=== PATIENT | male | born 1965 | race Caucasian/White ===

== ENCOUNTER 2025-10-14 07:05 | Emergency (ER) | payer BC, SELFPAY ==
[2025-10-14 07:11] VITALS: BP 179/109
[2025-10-14 07:22] VITALS: BMI 38.5
[2025-10-14 07:33] LABS: Urine Character Clear (Clear)
[2025-10-14 07:53] LABS: Hematocrit 45.8 % (39.0-52.0); Hemoglobin 16.6 g/dL (13.0-18.0); Mean Corp Hgb Conc. 36.2 g/dL (33.0-37.0); Mean Corpuscular Volume 84.0 fL (80.0-94.0); Nucleated Red Blood Cells % 0 % (-); Platelet Count 275 10^3/uL (130-400); Red Cell Dist. Width 12.2 % (11.5-14.5)
[2025-10-14 07:58] LABS: Urine Red Blood Cell 0-2 /HPF (0-2)
[2025-10-14 08:05] VITALS: BP 136/94
[2025-10-14] MEDS: NSS 1000 IV (08:06)
[2025-10-14 08:07] LABS: ALT (SGPT) 23 U/L (0-50); AST (SGOT) 31 U/L (17-59); Albumin 4.3 g/dl (3.5-5.0); Alkaline Phosphatase 84 U/L (38-126); Blood Urea Nitrogen 19 mg/dl (9-20); Calcium 8.9 mg/dl (8.4-10.2); Carbon Dioxide 18 mmol/L (22-30); Chloride 100 mmol/L (98-107); Estimated Creatinine Clearance 91 ml/min; Glucose 137 mg/dl (70-99); Magnesium 2.1 mg/dl (1.6-2.3); Potassium 4.4 mmol/L (3.5-5.1); Sodium 130 mmol/L (135-145); Total Protein 7.5 g/dl (6.3-8.2); eGFR > 60.00
--- NOTE | 2025-10-14 08:49 | ED.GENMED ---
History of Present Illness
General
Chief Complaint: Generalized Pain
Source: patient
Exam Limitations: none
Time Seen by Provider: 10/14/25 07:18
Nursing documentation reviewed up to this point in time: agreed with
History of Present Illness
History of Present Illness:
60-year-old male presenting to the emergency department today with concerns of generalized bodyaches intermittent muscle cramping over the past day or so. Denies any specific symptoms no chest pain shortness breath nausea vomiting numbness weakness
no increase in physical activity.
Review of Systems
Review of Systems
Allergies reviewed?: Yes
All Other Systems: ROS reviewed and negative except as documented in HPI and ROS
Phy Exam
Physical Exam
Physical Exam:
GENERAL: Alert , in no apparent distress
EYE: pupils equal and reactive
NECK: Supple, no significant adenopathy.
ENT: o/p clr, mmm.
CARDIAC: Regular rate and rhythm .
LUNGS: Clear breath sounds bilaterally, no acute respiratory distress, no wheezes/rales/rhonchi
ABDOMEN: Soft, without focal tenderness, no r/g, no cvat
NEUROLOGICAL: Alert and oriented, no focal neuro deficits
SKIN: Warm and dry, skin intact.
MUSCULOSKELETAL: No edema, well perfused.
PSYCH: Normal and appropriate interaction.
Course
Orders/Labs/Results
Orders:
Orders
10/14/25 07:26
Urinalysis Reflex To Culture Urgent
Date Specimen was Collected: 10/14/25
Time Specimen was Collected: 07:23
Urine Microscopic Reflex Cult Urgent
Urine Culture Urgent
ZUNILDA Source: U
Specimen Description:
Date Specimen was Collected: 10/14/25
Time Specimen was Collected: 07:23
10/14/25 07:39
EKG [Electrocardiogram (*1)] Urgent
Reason for Study: Fatigue / Weakness
10/14/25 07:40
EKG- Treatment ONCE
0.9% Sodium Chloride 1000 ml [Nss] 1,000 ml IV BOLUS
10/14/25 07:43
CBC/With Diff [Complete Blood Count/With Diff] Urgent
CMP [Comprehensive Metabolic Panel] Urgent
Magnesium Urgent
TSH Reflex To Free T4 Urgent
10/14/25 09:23
CT Abd/Pel (IV only)-DH only Urgent
Comment:
Reason For Exam: abd pain
10/14/25 12:20
Cefdinir [Omnicef] 300 mg PO NOW STA
Abnormal Lab Results
10/14/25 10/14/25
07:26 07:43
Absolute Lymphs (auto) 0.9 L 10^3/uL
(1.2-3.4)
Absolute Monos (auto) 0.7 H 10^3/uL
(0.1-0.6)
Neutrophils % 79.4 H %
(42.2-75.2)
Lymphocytes % 11.1 L %
(20.5-51.1)
Sodium 130 L mmol/L
(135-145)
Carbon Dioxide 18 L mmol/L
(22-30)
Glucose 137 H mg/dl
(70-99)
Urine Ketones 3+ A
(Negative)
Ur Occult Blood Reflex 3+ A
(Negative)
Leukocyte Esterase Rfl 1+ A
(Negative)
Urine Bacteria (Reflex) Moderate A
(Negative)
Urine Albumin (Reflex) 2+ A
(Neg - Trace)
10/14/25 07:43
10/14/25 07:43
Vital Signs
Initial and Last Documented VS:
Initial Vital Signs
Temp Pulse Resp Pulse Ox
98.2 F 113 20 99
10/14/25 07:07 10/14/25 07:07 10/14/25 07:07 10/14/25 07:07
Last Documented Vital Signs
Temp Pulse Resp BP Pulse Ox
98.2 F 79 16 142/85 98
10/14/25 07:07 10/14/25 10:56 10/14/25 10:56 10/14/25 11:34 10/14/25 11:35
MDM/Problems Addressed
MDM/Problems Addressed:
60-year-old male presenting to the emergency department today with concerns of intermittent muscle cramping diffusely. No specific inciting event or physical activity. Labs here showing slightly low sodium level otherwise no specific emergent
findings. Patient complained of ongoing lower abdominal pain concern the CT scan was obtained that showed cystitis however inconsistent with patient's urinalysis. Does have leukocyte esterase potential early UTI the start on antibiotic otherwise
stable for discharge. Return precautions given.
*Pulse Oximetry
SaO2: 99
Oxygen Mode of Delivery: Room air
Patient hypoxic: no (98)
*Critical Care Note
Total Time (30-74mins, 75-104mins- exclusive of procedures): Not Applicable
ED Attending Note
-
Portions of this chart may have been created with voice recognition software.� Occasional wrong word or��sound alike� substitutions may have occurred due to the inherent limitations of voice recognition software.
Discharge Plan
Departure
Patient Disposition: Home (Routine Discharge)
Date of Disposition: 10/14/25
Time of Disposition: 12:22
Patient with high blood pressure during this ER visit?: No
Condition: Good
Covid-19: Not Applicable
Discharge Problem:
Cystitis, Hyponatremia
Instructions: Urinary tract infection (DC)
Prescriptions:
New
cefpodoxime 200 mg tablet
200 mg PO BID 7 Days Qty: 14 0RF
Referrals:
UNKNOWN - PT DOES,NOT KNOW [Family Provider]
[facility] [Provider Group] - Follow up in 5-7 days
Activity Restrictions/Additional Instructions:
You came to the emergency department today with concerns of symptoms. Here you are found to have potential inflammation of your bladder. Please take the prescribed antibiotic twice daily and follow-up closely with your primary care doctor. Return
for any worsening, new or concerning symptoms.
Interventions
Interventions:
*Risk Screen - Suicide Last Done: 10/14/25 07:07
*General Assessment Last Done: 10/14/25 07:17
*Neglect/Abuse Screening Last Done: 10/14/25 07:26
*ED COVID-19 Vaccine History Last Done: 10/14/25 07:17
*ED Influenza Vaccine History Last Done: 10/14/25 07:17
[facility] Fall Risk Assessment Tool Last Done: 10/14/25 07:17
Discharge Date and Time
Print Language: PERSIAN
[2025-10-14 09:00] VITALS: BP 132/82
[2025-10-14 10:00] VITALS: BP 124/84
[2025-10-14 11:34] VITALS: BP 142/85
[2025-10-14] MEDS: OMNICEF 300 MG PO (12:24)
== END 2025-10-14 12:36 | disposition home or self-care (01) ==
LOC: EMR 07:05
PROVIDERS: Physician Assistant; EMERGENCY PHYSICIAN Student in an Organized Health Care Education/Training Program
DX: N30.90 Cystitis, unspecified without hematuria (principal); E87.1 Hypo-osmolality and hyponatremia
CPT/HCPCS: 99284; 96360; 74177; 80053; 81003; 81015; 83735; 84443; 85025; 87086; 93005; Q9967